=== PATIENT | female | born 1995 | race Caucasian/White ===

== ENCOUNTER 2019-04-06 20:09 | Emergency (ER) | payer SELFPAY ==
[~2019-04-06] VITALS: Ht 170.2 cm; Wt 83.9 kg
[2019-04-06 20:24] VITALS: BP 148/98
== END 2019-04-06 20:49 | disposition left against medical advice (07) ==
LOC: EDBD 20:09 → ER 20:15
DX: R51 Headache (principal); Z53.21 Procedure and treatment not carried out due to patient leaving prior to being seen by health care provider

== ENCOUNTER 2019-11-20 03:24 | Emergency (ER) | payer SELFPAY ==
[~2019-11-20] VITALS: Ht 170.2 cm; Wt 79.4 kg
[2019-11-20 03:37] VITALS: BP 165/99
== END 2019-11-20 04:36 | disposition home or self-care (01) ==
LOC: ER 03:26
DX: M54.2 Cervicalgia (principal)

== ENCOUNTER 2020-02-06 05:50 | Emergency (ER) | payer SELFPAY ==
[~2020-02-06] VITALS: Ht 172.7 cm; Wt 77.1 kg
[2020-02-06 06:37] VITALS: BP 125/81
[2020-02-06] MEDS ORDERED: NALOXONE HCL 1MG/ML 2ML SYRINGE IV ONE (07:15)
== END 2020-02-06 07:16 | disposition left against medical advice (07) ==
LOC: ER 05:50
DX: T65.91XA Toxic effect of unspecified substance, accidental (unintentional), initial encounter (principal); Z53.21 Procedure and treatment not carried out due to patient leaving prior to being seen by health care provider; Y92.89 Other specified places as the place of occurrence of the external cause
CPT/HCPCS: 96374